=== PATIENT | female | born 1950 | race Caucasian/White ===

== ENCOUNTER 2016-08-14 10:53 | Emergency (ER) | payer MEDICARE ==
--- NOTE | 2016-08-16 11:45 | ER ---
ADMIT: 08/14/2016 RM/LOC: ER [facility] MR#: [id number] [address] [facility] [id number] RADHA RANGEL [address] [place] [address] Emergency Room Report SEX: F AGE: 66 : 1950 DATE: 08/14/2016 ADDENDUM: This 66-year-old white female coming in with syncope near syncope. She was recently started on carvedilol and hydrochlorothiazide. We think maybe this is a little bit much for her. At this time, we did do CBC, chemistry, BNP, EKG which showed the rate about 60. We did do a CTA because she has significant history of some type of coagulopathy and been off her blood thinners for a while. That was negative. I did speak with Dr. Charles covering Dr. Winston. We are going to have her stop the carvedilol and hydrochlorothiazide and then see Dr. Winston next week. CONDITION ON DISCHARGE: Good. Mario Alberto Oakes MD/ abhijeet JOB #: [id number] CC: Mario Alberto Oakes MD, Attending Physician
== END 2016-08-14 14:10 | disposition home or self-care (01) ==
LOC: ER 10:53
DX: R55 Syncope and collapse (principal); Z86.718 Personal history of other venous thrombosis and embolism; Z79.01 Long term (current) use of anticoagulants; Z88.5 Allergy status to narcotic agent; Z79.899 Other long term (current) drug therapy

== ENCOUNTER → 2016-08-25 | Outpatient (CLI) | payer MEDICARE | END | disposition home or self-care (01) | LOC: RAD.S 13:40 | DX: R55 Syncope and collapse (principal) ==